=== PATIENT | male | born 1960 | race Caucasian/White ===

== ENCOUNTER 2017-10-14 10:35 | Emergency (ER) | payer BC, OTHER ==
[2017-10-14 10:35] VITALS: O2SAT 95
[~2017-10-14 10:35] MED LIST: AMB5 PO; ASPI1TAB83 PO; ATOR10TA82 PO; FENO145T24 PO; GLIP-172 PO; LPR25 PO; METF-384 PO; MULTTAB58 PO; OXYC-57 PO; PLV75 PO; SITA50TA PO; SODIUM CHLORIDE 0.9% 1000ML 1,000 ML IV STA; VITA400C3 PO
[2017-10-14] MEDS ORDERED: NiCARDipine HCL INJ 2.5 MG/ML 10 ML AMP IV ONE (10:36)
[2017-10-14] MEDS ORDERED: ETOMIDATE 2 MG/ML 20 ML VIAL IV ONE (10:36)
[2017-10-14] MEDS ORDERED: RAPID SEQUENCE INDUCTION BAG ONE (10:41)
[2017-10-14] MEDS ORDERED: MANNITOL 20% 500 ML BAG IV STA (10:50)
[2017-10-14] MEDS ORDERED: PROPOFOL IV EMULSION 10 MG/ML 100 ML VIAL IV ONE (10:51)
[2017-10-14] MEDS ORDERED: MANNITOL 20% 500 ML BAG ONE (10:51)
--- NOTE | 2017-10-14 10:52 | EMERGENCY ROOM VISIT NOTE ---
History Report prepared by Odalis: Jackson Wade Under the Supervision of: Dr. Kaylan Brandon M.D. First contact with patient: 10:28 Stated Complaint: UNRESPONSIVE History of Present Illness The patient is a 57 year old male who presents to the Emergency Room unresponsive. The patient vomited at 0530 and then his mental status started to deteriorate, according to EMS. The patient's states the patient who notes that he was last seen well at 0500 this morning, 5 hours and 15 minutes ago. He stated he didn't feel well and wasn't going to work. The patient is completely unresponsive upon arrival to the ED. Pre-examination CT of the head shows a large ICH. H/O previous cardiac arrest. Source of History: patient Onset: 5 hours and 15 minutes ago Position: head Quality: other (AMS) Timing: other (AMS beginning 5 hours and 15 minutes ago) Review of Systems Review is limited secondary to AMS. Past Medical & Surgical Hx of prior cardiac arrest, hypertension Social History Smoking Status: Former Smoker Drug Use: none Marital Status: Housing Status: lives with family Occupation Status: employed Current/Historical Medications Scheduled Aspirin (Aspirin), 81 MG PO DAILY Atorvastatin (Lipitor), 10 MG PO DAILY Clopidogrel Bisulfate (Clopidogrel), 75 MG PO QAM Fenofibrate (Fenofibrate), 145 MG PO DAILY Glipizide (Glipizide Xl), 10 MG PO DAILY Metformin Hcl (Glucophage), 850 MG PO BID Metoprolol Tartrate (Lopressor), 75 MG PO BID Multiple Vitamin (Multivitamin), 1 TAB PO DAILY Sitagliptin Phosphate (Januvia), 100 MG PO DAILY Vitamin E (Vitamin E 400 Iu), 400 INTER.UNIT PO BID Scheduled PRN Oxycodone/Acetaminophen 5MG/325MG (Percocet 5MG/325MG), 1 TAB PO Q6H PRN for Pain Zolpidem Tartrate (Zolpidem Tartrate), 5 MG PO HSZ PRN for Sleep Allergies Coded Allergies: No Known Allergies (Unverified , 12/08/12) Physical Exam Vital Signs Date Time Temp Pulse Resp B/P (MAP) Pulse Ox O2 Delivery O2 Flow Rate FiO2 10/14/17 12:43 80 21 138/62 100 10/14/17 11:47 80 21 100 10/14/17 11:46 138/62 10/14/17 11:44 81 24 100 10/14/17 11:41 82 24 155/72 100 10/14/17 11:39 155/72 10/14/17 11:38 84 19 100 10/14/17 11:35 80 23 100 10/14/17 11:34 139/71 10/14/17 11:32 80 22 100 10/14/17 11:31 146/69 10/14/17 11:29 81 28 100 10/14/17 11:27 154/65 10/14/17 11:26 82 24 156/78 100 10/14/17 11:23 83 24 100 10/14/17 11:21 148/80 10/14/17 11:20 82 26 100 10/14/17 11:19 167/78 10/14/17 11:17 82 27 100 10/14/17 11:14 78 23 100 10/14/17 11:11 78 24 162/78 100 10/14/17 11:08 77 27 100 10/14/17 11:06 69 24 214/102 100 10/14/17 11:06 214/102 10/14/17 11:05 69 27 100 10/14/17 11:03 100 10/14/17 11:02 73 27 100 10/14/17 11:01 212/105 10/14/17 10:59 70 31 100 10/14/17 10:56 72 26 240/111 97 10/14/17 10:53 71 17 97 10/14/17 10:51 241/109 10/14/17 10:50 100 10/14/17 10:50 77 16 95 10/14/17 10:47 74 10/14/17 10:47 238/118 10/14/17 10:40 100 Ambu-Bag 15.0 10/14/17 10:35 95 Nasal Cannula 10/14/17 10:35 73 20 238/118 100 Ambu-Bag 15.0 Physical Exam Vital signs reviewed. BP markedly elevated with greater than 200 systolic. General: Decerebrate posturing with any painful stimuli. Unresponsive to verbal stimuli, sonorous respirations HEENT: No scleral icterus, PERRLA, neck supple. Atraumatic. Cardiovascular: Pacemaker noted in the left anterior chest. Regular rate and rhythm, no extra sounds. Pulmonary: Sonorous respirations. Rhonchi bilaterally, n/c oxygen in place by EMS Abdomen: Soft, nontender, nondistended, positive bowel sounds. Musculoskeletal: Atraumatic, no peripheral edema. Neurologic: No purposeful responsiveness, slight disconjugate gaze with 2 mm sluggishly reactive pupils. Skin: Warm, dry, no rash Medical Decision & Procedures ER Provider Diagnostic Interpretation: Radiology results as stated below per my review and radiologist interpretation: CT OF THE HEAD WITHOUT CONTRAST CLINICAL HISTORY: AMS, unresponsive. COMPARISON STUDY: MRI of the brain February 01, 2015. CT DOSE: 1461.95 mGy.cm TECHNIQUE: Helical axial images of the head were obtained without IV contrast. Automated exposure control was utilized for the study. A dose lowering technique was utilized adhering to the principles of ALARA. FINDINGS: This exam is mildly compromised by motion artifact. Note is made of extensive acute intraventricular hemorrhage which is present within the lateral ventricles, third ventricle and fourth ventricle. The amount of hemorrhage is greatest within the left lateral ventricle. There is a 3.6 cm focus of hemorrhage which projects of the left thalamus. This could be originating from the left thalamus or be intraventricular in location. There is bowing of the intraventricular septum. There is mild adjacent edema. There is mild hydrocephalus with mild sulcal effacement. No subarachnoid hemorrhage is identified. No subdural hemorrhage is present. No calvarial fracture is noted. There is minimal mucosal thickening of the ethmoid sinuses. Mastoid air cells are clear. IMPRESSION: Extensive acute intraventricular hemorrhage possibly originating from a left thalamic hemorrhage. While not definitive, this may reflect a hypertensive bleed. Mild associated hydrocephalus and mild sulcal effacement. Neurosurgical consultation is recommended. Findings conveyed to Dr. Brandon time of dictation. Electronically signed by: Jason Haq M.D. 10/14/2017 10:52 AM Dictated Date/Time: 10/14/2017 10:38 AM Laboratory Results 10/14/17 10:46 Red Blood Count 5.17, Mean Corpuscular Volume 85.9, Mean Corpuscular Hemoglobin 29.8, Mean Corpuscular Hemoglobin Concent 34.7, Mean Platelet Volume 10.4, Neutrophils (%) (Auto) 84.3, Lymphocytes (%) (Auto) 10.3, Monocytes (%) (Auto) 3.6, Eosinophils (%) (Auto) 1.4, Basophils (%) (Auto) 0.2, Neutrophils # (Auto) 11.03, Lymphocytes # (Auto) 1.35, Monocytes # (Auto) 0.47, Eosinophils # (Auto) 0.18, Basophils # (Auto) 0.03 10/14/17 10:46 Test 10/14/17 10:46 10/14/17 11:17 10/14/17 11:43 White Blood Count 13.09 K/uL (4.8-10.8) Red Blood Count 5.17 M/uL (4.7-6.1) Hemoglobin 15.4 g/dL (14.0-18.0) Hematocrit 44.4 % (42-52) Mean Corpuscular Volume 85.9 fL (80-100) Mean Corpuscular Hemoglobin 29.8 pg (25-34) Mean Corpuscular Hemoglobin Concent 34.7 g/dl (32-36) Platelet Count 317 K/uL (130-400) Mean Platelet Volume 10.4 fL (7.4-10.4) Neutrophils (%) (Auto) 84.3 % Lymphocytes (%) (Auto) 10.3 % Monocytes (%) (Auto) 3.6 % Eosinophils (%) (Auto) 1.4 % Basophils (%) (Auto) 0.2 % Neutrophils # (Auto) 11.03 K/uL (1.4-6.5) Lymphocytes # (Auto) 1.35 K/uL (1.2-3.4) Monocytes # (Auto) 0.47 K/uL (0.11-0.59) Eosinophils # (Auto) 0.18 K/uL (0-0.5) Basophils # (Auto) 0.03 K/uL (0-0.2) RDW Standard Deviation 39.9 fL (36.4-46.3) RDW Coefficient of Variation 12.6 % (11.5-14.5) Immature Granulocyte % (Auto) 0.2 % Immature Granulocyte # (Auto) 0.03 K/uL (0.00-0.02) Prothrombin Time 10.5 SECONDS (9.0-12.0) Prothromb Time International Ratio 1.0 (0.9-1.1) Activated Partial Thromboplast Time 21.9 SECONDS (21.0-31.0) Partial Thromboplastin Ratio 0.8 Estimated GFR () 87.8 Estimated GFR (Non- 75.8 BUN/Creatinine Ratio 14.4 (10-20) Calcium Level 8.7 mg/dl (8.5-10.1) Total Bilirubin 0.4 mg/dl (0.2-1) Aspartate Amino Transf (AST/SGOT) 24 U/L (15-37) Alanine Aminotransferase (ALT/SGPT) 25 U/L (12-78) Alkaline Phosphatase 53 U/L (45-117) Total Protein 7.4 gm/dl (6.4-8.2) Albumin 4.2 gm/dl (3.4-5.0) Globulin 3.2 gm/dl (2.5-4.0) Albumin/Globulin Ratio 1.3 (0.9-2) Beta-Hydroxybutyric Acid 3.95 mg/dL (0.2-2.81) Thyroid Stimulating Hormone (TSH) 0.574 uIu/ml (0.300-4.500) Ethyl Alcohol mg/dL < 3.0 mg/dl (0-3) Urine Color YELLOW Urine Appearance CLEAR (CLEAR) Urine pH 6.5 (4.5-7.5) Urine Specific Marshall 1.027 (1.000-1.030) Urine Protein 1+ (NEG) Urine Glucose (UA) 3+ (NEG) Urine Ketones NEG (NEG) Urine Occult Blood TRACE (NEG) Urine Nitrite NEG (NEG) Urine Bilirubin NEG (NEG) Urine Urobilinogen NEG (NEG) Urine Leukocyte Esterase NEG (NEG) Urine WBC (Auto) 0 /hpf (0-5) Urine RBC (Auto) 0-4 /hpf (0-4) Urine Hyaline Casts (Auto) 0 /lpf (0-5) Urine Epithelial Cells (Auto) 10-20 /lpf (0-5) Urine Bacteria (Auto) NEG (NEG) Urine Opiates Screen NEG (NEG) Urine Methadone, Qualitative NEG (NEG) Urine Barbiturates NEG (NEG) Urine Phencyclidine (PCP) Level NEG (NEG) Ur Amphetamine/Methamphetamine NEG (NEG) MDMA (Ecstasy) Screen NEG (NEG) Urine Benzodiazepines Screen NEG (NEG) Urine Cocaine Metabolite NEG (NEG) Urine Marijuana (THC) NEG (NEG) Bedside Hemoglobin 13.6 g/dl (14.0-18.0) Bedside Hematocrit 40 % (42-52) Bedside Sodium 133 mEq/L (135-144) Bedside Potassium 6.0 mEq/L (3.3-5.0) Bedside Chloride 99 mEq/L (101-112) Bedside Total CO2 24 mEq/l (24-31) Anion Gap 17.0 mmol/L (16-25) Bedside Blood Urea Nitrogen 19 mg/dl (7-18) Bedside Creatinine 0.7 mg/dl (0.6-1.3) Bedside Glucose (other) 340 mg/dl (70-99) Bedside Ionized Calcium (Lana) 1.11 mmol/l (1.12-1.32) Laboratory results per my review. Medications Administered Medications (Trade) Dose Ordered Sig/Cony Route Start Time Stop Time Status Last Admin Dose Admin Miscellaneous (Rapid Sequence Induction Bag) 1 ea STK-MED ONCE N/A 10/14/17 10:41 10/14/17 10:42 DC 10/14/17 11:43 1 EA Levetiracetam 1000 mg/Dextrose 110 ml @ 440 mls/hr ONE ONCE IV 10/14/17 11:00 10/14/17 11:14 DC 10/14/17 11:42 440 MLS/HR Mannitol (Mannitol) 500 ml NOW STAT IV 10/14/17 10:50 10/14/17 10:52 DC 10/14/17 11:41 500 ML Propofol (Diprivan Iv Emulsion 100ml Vial) 1 dose STK-MED ONCE IV 10/14/17 10:51 10/14/17 10:52 DC 10/14/17 11:41 1 DOSE Nicardipine HCl 25 mg/Sodium Chloride 250 ml @ 0 mls/hr Q0M STAT IV 10/14/17 10:59 10/14/17 11:06 DC 10/14/17 11:42 5 MLS/HR Calcium Gluconate (Calcium Gluconate 10%) 1,000 mg NOW STAT IV 10/14/17 11:49 10/14/17 11:51 DC 10/14/17 11:58 1,000 MG Insulin Human Regular (novoLIN-R U-100 PER UNIT) 10 units NOW STAT IV 10/14/17 11:49 10/14/17 11:51 DC 10/14/17 11:58 10 UNITS Procedure Endotracheal Intubation Indication unresponsiveness. The patient was on 100% oxygen via NRB prior to the procedure. Suction, airway equipment, RSI drugs, respiratory equipment, and appropriate personnel were prepared prior to the initiation of the procedure. A time out was taken. Induction was performed with 100mg Succs IV and Etomidate 20mg IV. After observing the clinical benefit of the medications, the airway was easily visualized utilizing a glidescope. An 8.0 ETT tube was placed atraumatically to 25 cm at the lips using standard technique. The cuff inflated without signs of malfunction. There were bilateral breath sounds, positive colormetric change, no gastric sounds and post procedure pulse oximetry was 100%. Post intubation sedation and paralysis was administered using Propofol. There were no complications. ECG Per My Interpretation Indication: altered mental status Rate (beats per minute): 81 Rhythm: normal sinus Findings: LAFB, RBBB, no acute ischemic change ED Course 1040: Past medical records reviewed. The patient was evaluated in room A1. A complete history and physical examination was performed. 1050: Mannitol 500 mg IV, Propofol gtt, Hydralazine 10 mg IV HCl, Sodium Chloride 1000 mL @ 125 mL/hr IV. 1051: I discussed the case with Dr. Ary Montgomery [facility]. Patient accepted to [facility]. ED made aware of transfer. Medical Decision Differential diagnosis: Etiologies such as metabolic, infection, hypoglycemia, electrolyte abnormalities , cardiac sources, intracerebral event, toxicologic, neurologic, as well as others were entertained. This patient was evaluated was unresponsive. Pt was found to have sonorous respirations. CT scan of the head is significant for ICH with hydrocephalus. Pt was given IV mannitol for increased ICP, IV keppra for seizure prophylaxis and IV hydralazine 10 mg for marked HTN. Pt was intubated and was sedated with propofol. [facility] was consulted and pt was accepted by Dr Mcallister in transfer. Pt was started on a nicardipine gtt for strict BP management. Pt's was updated on several occasions, she confirmed the desire for intubation at this time. She was made aware of the grim prognosis, but transfer is urgent for any meaningful outcome. [facility] was notified and pt was air transported to [facility], accepted to the ED. Consults Time Called: 1051 Consulting Physician: Dr. Ary Montgomery [facility] Returned Call: 1051 I discussed the case with Dr. Ary Montgomery [facility]. Patient accepted to [facility]. ED made aware of transfer. Impression Primary Impression: Intracerebral hemorrhage Additional Impression: Hydrocephalus Critical Care I have personally spent greater than 90 minutes of critical care time in the direct management of this patient. This includes bedside care, interpretation of diagnostic studies, and testing, discussion with consultants, patient, and family members, and other required patient management activities. This 90 minutes is in excess of all separately billable procedures. Scribe Attestation The scribe's documentation has been prepared under my direction and personally reviewed by me in its entirety. I confirm that the note above accurately reflects all work, treatment, procedures, and medical decision making performed by me. Departure Information Dispostion Transfer Acute Care Facility ([facility] ED) Problem Qualifiers
[2017-10-14] MEDS ORDERED: HydrALAZINE HCL 20 MG/ML VIAL ONE (10:55)
[2017-10-14] MEDS ORDERED: NiCARDipine IV 25 MG in SODIUM CHLORIDE 0.9% 250ML 240 ML IV STA (10:59)
[2017-10-14] MEDS ORDERED: LEVETIRACETAM IV 1,000 MG in DEXTROSE 5% 100ML 100 ML IV ONE (11:00)
[2017-10-14] MEDS ORDERED: PROPOFOL IV EMULSION 10 MG/ML 100 ML VIAL IV PRN (11:00)
[2017-10-14 11:04] LABS: BASO % 0.2 %; BASO ABS # 0.03 K/uL (0-0.2); EOS % 1.4 %; EOS ABS # 0.18 K/uL (0-0.5); HEMATOCRIT 44.4 % (42-52); HEMOGLOBIN 15.4 g/dL (14.0-18.0); IG# 0.03 K/uL (0.00-0.02); LYMPH % 10.3 %; LYMPH ABS # 1.35 K/uL (1.2-3.4); MEAN CELL VOLUME 85.9 fL (80-100); MEAN CORPUSCULAR HEMOGLOBIN 29.8 pg (25-34); MEAN CORPUSCULAR HGB CONC 34.7 g/dl (32-36); MEAN PLATELET VOLUME 10.4 fL (7.4-10.4); MONO % 3.6 %; MONO ABS # 0.47 K/uL (0.11-0.59); NEUT % 84.3 %; NEUT ABS # 11.03 K/uL (1.4-6.5); PLATELET COUNT 317 K/uL (130-400); RED CELL DISTRIBUTION WIDTH CV 12.6 % (11.5-14.5); RED CELL DISTRIBUTION WIDTH SD 39.9 fL (36.4-46.3); WHITE BLOOD COUNT 13.09 K/uL (4.8-10.8)
--- NOTE | 2017-10-14 11:23 | DIAGNOSTIC IMAGING REPORT ---
CHEST ONE VIEW PORTABLE CLINICAL HISTORY: Altered mental status. Intubation. COMPARISON STUDY: Chest radiograph February 04, 2015. FINDINGS: The tip of the endotracheal tube is 4 cm above the chin. A left subclavian pacer/AICD is in place. There is mild cardiomegaly. No pneumothorax or pleural effusion is noted. There is no consolidation. There is pulmonary vascular congestion without overt pulmonary edema. There is slight asymmetric left upper lung interstitial thickening. Lung volumes are diminished. IMPRESSION: 1. Tip of endotracheal tube 4 cm above the chin. 2. Pulmonary vascular congestion without overt edema. Diminished lung volumes. Electronically signed by: Jason Haq M.D. 10/14/2017 11:22 AM Dictated Date/Time: 10/14/2017 11:20 AM
[2017-10-14 11:31] LABS: ALBUMIN 4.2 gm/dl (3.4-5.0); ALT/SGPT 25 U/L (12-78); BLOOD UREA NITROGEN 16 mg/dl (7-18); CALCIUM 8.7 mg/dl (8.5-10.1); CARBON DIOXIDE 24 mmol/L (21-32); CREATININE 1.08 mg/dl (0.60-1.40); GLUCOSE 303 mg/dl (70-99); POTASSIUM 6.2 mmol/L (3.5-5.1); SODIUM 135 mmol/L (136-145)
[2017-10-14 11:34] LABS: PTT PATIENT 21.9 SECONDS (21.0-31.0)
[2017-10-14 11:49] LABS: ALKALINE PHOSPHATASE 53 U/L (45-117); AST/SGOT 24 U/L (15-37); TOTAL PROTEIN 7.4 gm/dl (6.4-8.2)
[2017-10-14] MEDS ORDERED: NovoLIN-R INSULIN PER UNIT CHARGE IV STA (11:49)
[2017-10-14] MEDS ORDERED: CALCIUM GLUCONATE 10% 10 ML VIAL IV STA (11:49)
[2017-10-14 11:57] LABS: ISTAT CREATININE 0.7 mg/dl (0.6-1.3); ISTAT IONIZED CALCIUM 1.11 mmol/l (1.12-1.32)
[2017-10-14] MEDS ORDERED: MoRPHine SULFATE 4 MG/ML 1 ML CARP\\VIAL IV STA (12:07)
[2017-10-14] MEDS ORDERED: PANTOprazole INJ 80 MG in DEXTROSE 5% 100ML 100 ML IV SCH (12:15)
[2017-10-14 12:43] VITALS: BP 138/62; PULSE 80; O2SAT 100
== END 2017-10-14 12:20 | disposition short-term general hospital (02) ==
LOC: C.EDA 10:35
DX: I61.9 Nontraumatic intracerebral hemorrhage, unspecified (principal); G91.9 Hydrocephalus, unspecified; I10 Essential (primary) hypertension; I44.4 Left anterior fascicular block; I45.10 Unspecified right bundle-branch block; Z86.74 Personal history of sudden cardiac arrest; Z87.891 Personal history of nicotine dependence; Z79.82 Long term (current) use of aspirin; Z79.84 Long term (current) use of oral hypoglycemic drugs; Z79.899 Other long term (current) drug therapy